=== PATIENT | male | born 1995 | race Caucasian/White ===

== ENCOUNTER → 2020-08-25 | Outpatient (CLI) | payer OTHER ==
[~2020-08-25] MED LIST: IBUPROFEN600 MG PO
== END ==
LOC: KOH-I 15:26
DX: R59.0 Localized enlarged lymph nodes (principal); L72.9 Follicular cyst of the skin and subcutaneous tissue, unspecified
CPT/HCPCS: 76536

== ENCOUNTER 2020-12-28 04:33 | Emergency (ER) | payer OTHER ==
[2020-12-28] MEDS ORDERED: IBUPROFEN600 MG PO (06:48)
== END 2020-12-28 06:57 | disposition home or self-care (01) ==
LOC: ER1 04:33
DX: S29.012A Strain of muscle and tendon of back wall of thorax, initial encounter (principal); W19.XXXA Unspecified fall, initial encounter; Y92.69 Other specified industrial and construction area as the place of occurrence of the external cause; Y99.0 Civilian activity done for income or pay
CPT/HCPCS: 72128; 99283